=== PATIENT | female | born 1970 | race Hispanic/Latino ===

== ENCOUNTER 2017-02-11 19:53 | Emergency (ER) | payer MEDICAID ==
[2017-02-11 20:03] VITALS: TEMP 98.4; O2SAT 98
--- NOTE | 2017-02-11 20:38 | C.PDOC ---
History Of Present Illness 46 y/o female c/o intermittent sore throat, nasal congestion, mild cough for 2 weeks. Patient notes cough has improved, but she still has sore throat and today with bilateral earache. Denies fever, chills, abdominal pain, rash, or any other complaints. Time Seen by Provider: 02/11/17 20:06 Chief Complaint (Nursing): Cough, Cold, Congestion History Per: Patient History/Exam Limitations: no limitations Onset/Duration Of Symptoms: Days (2 weeks), Intermittent Episodes Current Symptoms Are (Timing): Still Present Location Of Pain: Ear(s) Associated Symptoms: Nasal Congestion. denies: Fever, Chills Ear Symptoms: Bilateral: Ear Pain Severity: Mild Recent travel outside of the [place]: No Additional History Per: Patient Past Medical History Reviewed: Historical Data, Nursing Documentation, Vital Signs Vital Signs: Last Vital Signs Temp 98.4 F 02/11/17 20:00 Pulse 85 02/11/17 20:44 Resp 18 02/11/17 20:44 BP 129/72 02/11/17 20:44 Pulse Ox 98 02/11/17 21:47 - Medical History PMH: Anxiety - [facility] Procedures OTHER SKIN & SUBQ I D (03/10/13) TETANUS TOXOID ADMINIST (03/10/13) Family History: States: Unknown Family Hx - Social History Hx Tobacco Use: No Hx Alcohol Use: No Hx Substance Use: No - Immunization History Hx Tetanus Toxoid Vaccination: No Hx Influenza Vaccination: Yes Hx Pneumococcal Vaccination: No Review Of Systems Except As Marked, All Systems Reviewed And Found Negative. Constitutional: Negative for: Fever, Chills ENT: Positive for: Ear Pain, Nose Congestion, Throat Pain Respiratory: Positive for: Cough Gastrointestinal: Negative for: Abdominal Pain Skin: Negative for: Rash Physical Exam - Physical Exam Appears: Non-toxic, No Acute Distress Skin: Warm, Dry Head: Atraumatic, Normacephalic Eye(s): bilateral: Normal Inspection Ear(s): Bilateral: Normal Nose: Tenderness (Frontal sinus tenderness), Other (Enlarged nasal turbinates) Throat: No Erythema, Exudate (left side) Cardiovascular: Rhythm Regular Respiratory: Normal Breath Sounds, No Wheezing Neurological/Psych: Oriented x3 ED Course And Treatment O2 Sat by Pulse Oximetry: 98 (RA) Pulse Ox Interpretation: Normal Progress Note: Impression: 46 y/o female c/o intermittent sore throat, nasal congestion, mild cough for 2 weeks and earache x 1d. Plans: Reassess. Pt is in no acute distress at this time. Pt is afebrile and was instructed to follow up with her PMD within 1-2 days and to return if symptoms worsens. Disposition Counseled Patient/Family Regarding: Diagnosis, Need For Followup, Rx Given - Disposition Disposition: HOME/ ROUTINE Disposition Time: 20:35 Condition: STABLE Additional Instructions: Please take meds as directed Follow up with PMD Return to ER if worse Prescriptions: Azithromycin [Zithromax] 250 mg PO DAILY #6 tab Cetirizine HCl [Zyrtec] 10 mg PO DAILY #20 capsule Mometasone Furoate [Nasonex] 2 spray NS DAILY #1 bottle Instructions: Pharyngitis (ED), Sinusitis (ED) Forms: [employer] (Slovak) - Clinical Impression Clinical Impression: Sinusitis, Pharyngitis - Scribe Statement The provider has reviewed the documentation as recorded by the Aleahibjazmyne gao All medical record entries made by the Gonzalo were at my direction and personally dictated by me. I have reviewed the chart and agree that the record accurately reflects my personal performance of the history, physical exam, medical decision making, and the department course for this patient. I have also personally directed, reviewed, and agree with the discharge instructions and disposition.
[2017-02-11 20:45] VITALS: BP 129/72; PULSE 85; RESP 18
== END 2017-02-11 20:45 | disposition home or self-care (01) ==
LOC: C.ER 19:53
DX: J02.9 Acute pharyngitis, unspecified (principal); J32.9 Chronic sinusitis, unspecified; F17.210 Nicotine dependence, cigarettes, uncomplicated

== ENCOUNTER 2017-07-15 19:38 | Emergency (ER) | payer MEDICAID ==
[2017-07-15 19:58] VITALS: RESP 20; TEMP 99
--- NOTE | 2017-07-15 20:20 | C.PDOC ---
History Of Present Illness 47 year old female presents to the ER complaining of right ear pain which has been present for the past 2 days. Patient states that the pain radiates down to the neck and throat. Patient also feels like she has fever and chills. She took Tylenol without relief. Patient denies having chest pain, SOB, abdominal pain, vomiting, diarrhea, urinary symptoms or rash Time Seen by Provider: 07/15/17 20:12 Chief Complaint (Nursing): ENT Problem History Per: Patient Onset/Duration Of Symptoms: Days Current Symptoms Are (Timing): Still Present Quality (Ear): denies: Discharge, Foreign Body Severity: Moderate Past Medical History Reviewed: Historical Data, Nursing Documentation, Vital Signs Vital Signs: Last Vital Signs Temp 99 F 07/15/17 20:41 Pulse 88 07/15/17 20:41 Resp 20 07/15/17 20:41 BP 132/86 07/15/17 20:41 Pulse Ox 99 07/15/17 21:19 - Medical History PMH: Anxiety Surgical History: No Surg Hx - [facility] Procedures OTHER SKIN & SUBQ I D (03/10/13) TETANUS TOXOID ADMINIST (03/10/13) Family History: States: No Known Family Hx - Social History Hx Tobacco Use: No Hx Alcohol Use: No Hx Substance Use: No - Immunization History Hx Tetanus Toxoid Vaccination: No Hx Influenza Vaccination: No Hx Pneumococcal Vaccination: No Review Of Systems Constitutional: Positive for: Fever, Chills ENT: Positive for: Ear Pain (right ear pain) Cardiovascular: Negative for: Chest Pain Respiratory: Negative for: Shortness of Breath Gastrointestinal: Negative for: Abdominal Pain Genitourinary: Negative for: Dysuria Musculoskeletal: Negative for: Neck Pain Skin: Negative for: Rash Neurological: Negative for: Weakness, Numbness, Headache Physical Exam - Physical Exam Appears: Non-toxic, No Acute Distress Skin: Normal Color, Warm Head: Atraumatic, Normacephalic Eye(s): bilateral: Normal Inspection, Abnormal Pupil Ear(s): Left: Normal, Right: TM Erythema (bulging) Nose: Normal Oral Mucosa: Moist Throat: Normal, No Erythema, No Exudate Neck: Normal ROM, Supple Chest: Symmetrical Cardiovascular: Rhythm Regular, No Murmur Respiratory: Normal Breath Sounds, No Accessory Muscle Use, No Rales, No Rhonchi , No Wheezing Extremity: Normal ROM, No Tenderness, No Deformity, No Swelling Neurological/Psych: Oriented x3, Normal Speech, Normal Motor, Normal Sensation Gait: Steady ED Course And Treatment O2 Sat by Pulse Oximetry: 99 (RA) Pulse Ox Interpretation: Normal Medical Decision Making Medical Decision Making: Patient without fever and in no acute distress. Exam consistent with AOM and will treat with Clindamycin PO, as she is PCN allergic. Patient given Rx and advised to take analgesics and follow up with ENT if symptoms persist Disposition Counseled Patient/Family Regarding: Diagnosis, Need For Followup, Rx Given - Disposition Referrals: Marcus Claros MD [Staff Provider] - Disposition: HOME/ ROUTINE Disposition Time: 20:18 Condition: STABLE Additional Instructions: You have an ear infection. Take antibiotic four times a day. Take Tylenol or Motrin alternating every 4-6 hours for Fever 100.4F or higher. Avoid putting anything in ear, including Q-tips, no swimming or water to ear. Florastor is to help with any upset stomach or diarrhea from antibiotic. Follow up with your doctor or clinic for further care. Return to the emergency department at any time if symptoms persist or worsen. Prescriptions: Clindamycin [Cleocin] 300 mg PO QID #28 cap Saccharomyces Boulardi [Florastor] 250 mg PO BID #20 cap Instructions: Otitis Media (ED) Forms: [facility] (Anguillan) - POA Present On Arrival: None - Clinical Impression Clinical Impression: Otitis media - PA / FOOD AND NUTRITION PROFESSOR / Resident Statement MD/DO has reviewed & agrees with the documentation as recorded. - Scribe Statement The provider has reviewed the documentation as recorded by the Gonzalo Hamlin Provider Attestation All medical record entries made by the Gonzalo were at my direction and personally dictated by me. I have reviewed the chart and agree that the record accurately reflects my personal performance of the history, physical exam, medical decision making, and the department course for this patient. I have also personally directed, reviewed, and agree with the discharge instructions and disposition.
[2017-07-15 20:42] VITALS: BP 132/86; PULSE 88
[2017-07-15 21:13] VITALS: O2SAT 99
== END 2017-07-15 20:41 | disposition home or self-care (01) ==
LOC: C.ER 19:38
DX: H66.90 Otitis media, unspecified, unspecified ear (principal)